=== PATIENT | female | born 1960 | race Caucasian/White ===

== ENCOUNTER 2017-10-04 07:49 | Day surgery (SDC) | payer SELFPAY ==
[2017-10-04] MEDS ORDERED: Ringers Lactate 1,000 ML IV ONE ×2 (08:36→10:33)
[2017-10-04] MEDS ORDERED: LIDOCAINE 1% MPF 5 ML VIAL ONE (10:03)
[2017-10-04] MEDS ORDERED: PROPOFOL 200 MG/20 ML VIAL IV ONE ×2 (10:03→11:08)
--- NOTE | 2017-10-04 11:05 | ENDO RPT ---
[address], [address] EGD PROCEDURE REPORT EXAM DATE: 10/04/2017 PATIENT NAME: Jamila Guerra MR#: [id number] BIRTHDATE: 1960 ATTENDING: Isaiah Razo DR STATUS: outpatient BOBBIN HAULER: Kylie Garcia, Xiomara Eckert RN, and Nini Cobb RN INDICATIONS: The patient is a 57 yr old Female here for an EGD due to mid epigastric abdominal pain PROCEDURE PERFORMED: EGD with biopsy for H. pylori MEDICATIONS: Per Anesthesia. TOPICAL ANESTHETIC: none CONSENT: The patient understands the risks and benefits of the procedure and understands that these risks include, but are not limited to: sedation, allergic reaction, infection, perforation and/or bleeding. Alternative means of evaluation and treatment include, among others: physical exam, x-rays, and/or surgical intervention. The patient elects to proceed with this endoscopic procedure. DESCRIPTION OF PROCEDURE: During intra-op preparation period all mechanical medical equipment was checked for proper function. Hand hygiene and appropriate measures for infection prevention was taken. Procedure, possible complications, and alternatives including but not limited to the possibility of bleeding, perforation, tear, infection, sepsis, need for surgery, need for blood transfusion, and anesthesia related complications were explained to the patient. After the risks, benefits and alternatives of the procedure were thoroughly explained, Informed consent was verified, confirmed and timeout was successfully executed by the treatment team. The patient was placed in the left lateral position. The patient was anesthetized with topical anesthesia. Through the anesthetized oropharyngeal area, the scope was passed without any difficulty. The [id number] ([id number]) endoscope was introduced through the mouth and advanced to the second portion of the duodenum. Gastric Band Location Noted and Retroflexed views revealed a small hiatal hernia. The gastroscope was then slowly withdrawn and removed. Mild gastritis was found in the total stomach. Biopsies Obtained A biopsy for H. pylori was taken. Multiple biopsies were obtained and sent to pathology. Bile reflux was found at the pylorus. A biopsy for H. pylori was taken. An erosion was found at the pylorus. A biopsy for H. pylori was taken. Erythema was found in the gastroesophageal junction. A biopsy for H. pylori was taken. ADVERSE EVENTS: There were no complications. IMPRESSIONS: 1. Mild gastritis was found in the total stomach 2. Bile reflux was found at the pylorus RECOMMENDATIONS: 1. anti-reflux regimen 2. await biopsy results 3. follow-up: office 2 week(s) 4. avoid NSAIDS 5. acid suppression therapy REPEAT EXAM: Isaiah Razo DR eSigned: Isaiah Razo DR 10/04/2017 11:05 AM cc: CPT CODES: ICD9 CODES: PATIENT NAME: Jamila Guerra MR#: [id number]
--- NOTE | 2017-10-04 11:10 | ENDO RPT ---
[address], [address] COLONOSCOPY PROCEDURE REPORT EXAM DATE: 10/04/2017 PATIENT NAME: Jamila Guerra MR #: [id number] BIRTHDATE: 1960 ATTENDING: Isaiah Razo DR STATUS: outpatient DIRECTOR OF ACCOUNTS RECEIVABLE: Xiomara Eckert RN, Nini Cobb RN, and Kylie Garcia INDICATIONS: The patient is a 57 yr old Female here for a colonoscopy due to colon cancer screening PROCEDURE PERFORMED: Colonoscopy with biopsy - cold polypectomy MEDICATIONS: Per Anesthesia. ESTIMATED BLOOD LOSS: None CONSENT: The patient understands the risks and benefits of the procedure and understands that these risks include, but are not limited to: sedation, allergic reaction, infection, perforation and/or bleeding. Alternative means of evaluation and treatment include, among others: physical exam, x-rays, and/or surgical intervention. The patient elects to proceed with this endoscopic procedure. DESCRIPTION OF PROCEDURE: During intra-op preparation period all mechanical medical equipment was checked for proper function. Hand hygiene and appropriate measures for infection prevention was taken. Procedure, possible complications, alternatives including, but not limited to possibility of bleeding, perforation, tear, infection, sepsis, need for surgery, need for blood transfusion, were explained to the patient. After the risks, benefits and alternatives of the procedure were thoroughly explained, Informed consent was verified, confirmed and timeout was successfully executed by the treatment team. The patient was placed in the left lateral position. A digital rectal exam was performed and revealed no abnormalities of the rectum. After appropriate level of anesthesia, the scope was passed. The EC-[id number] ([id number]) and [id number] ([id number]) endoscope was introduced through the anus and advanced to the cecum, which was identified by both the appendix and ileocecal valve. The quality of the prep was poor. The instrument was then slowly withdrawn as the colon was fully examined. Scope withdrawal time was 10 minutes. COLON FINDINGS: A medium sized polypoid shaped and smooth pedunculated polyp with a friable surface was found in the sigmoid colon. A polypectomy was performed with a cold snare. The resection was complete, the polyp tissue was completely retrieved and sent to histology. Mild diverticulosis was noted in the right colon. No bleeding was noted from the diverticulosis. Retroflexed views revealed no abnormalities. The scope was then completely withdrawn from the patient and the procedure terminated. ADVERSE EVENTS: There were no complications. IMPRESSIONS: 1. Medium sized pedunculated polyp was found in the sigmoid colon; polypectomy was performed with a cold snare 2. Mild diverticulosis was noted in the right colon RECOMMENDATIONS: 1. avoid NSAIDS for 2 weeks 2. await biopsy results 3. fiber rich diet 4. follow-up: office 2 week(s) RECALL: Return in 2 year(s) for Colonoscopy, pending biopsy results. Pending Biopsy Isaiah Razo DR eSigned: Isaiah Razo DR 10/04/2017 11:09 AM cc: CPT CODES: ICD9 CODES: PATIENT NAME: Jamila Guerra MR#: [id number]
== END 2017-10-04 11:47 | disposition home or self-care (01) ==
LOC: OR 07:49
PROVIDERS: ATTEND Surgery
PROC: 0DB78ZX Excision of Stomach, Pylorus, Via Natural or Artificial Opening Endoscopic, Diagnostic (ICD-10-PCS; 2017-10-04)
PROC: 0DBN8ZX Excision of Sigmoid Colon, Via Natural or Artificial Opening Endoscopic, Diagnostic (ICD-10-PCS; principal; 2017-10-04 10:07)
PROC: 0DB48ZX Excision of Esophagogastric Junction, Via Natural or Artificial Opening Endoscopic, Diagnostic (ICD-10-PCS; 2017-10-04 10:07)
DX: K29.50 Unspecified chronic gastritis without bleeding (principal); K25.9 Gastric ulcer, unspecified as acute or chronic, without hemorrhage or perforation; Z12.11 Encounter for screening for malignant neoplasm of colon; D12.5 Benign neoplasm of sigmoid colon; K21.0 Gastro-esophageal reflux disease with esophagitis; K57.30 Diverticulosis of large intestine without perforation or abscess without bleeding; K44.9 Diaphragmatic hernia without obstruction or gangrene; I10 Essential (primary) hypertension; E78.5 Hyperlipidemia, unspecified; Z72.0 Tobacco use; Z98.84 Bariatric surgery status; Z79.82 Long term (current) use of aspirin; Z90.49 Acquired absence of other specified parts of digestive tract; Z83.3 Family history of diabetes mellitus; Z82.49 Family history of ischemic heart disease and other diseases of the circulatory system
CPT/HCPCS: 88305